=== PATIENT | male | born 1960 | race African-American/Black ===

== ENCOUNTER 2017-05-15 16:09 | Emergency (ER) | payer OTHER ==
[~2017-05-15] VITALS: Ht 177.8 cm; Wt 70.0 kg
[2017-05-15] MEDS ORDERED: MOTR200T44 PO (16:26)
[2017-05-15] MEDS ORDERED: HARV1TAB PO (16:26)
[2017-05-15] MEDS ORDERED: KETOROLAC 60 MG/2 ML VIAL (J1885) IM ONE (18:30)
--- NOTE | 2017-05-15 18:59 | REP ---
REASON: Pain. No trauma. PRIORS: None. AP pelvis shows moderate to severe bilateral asymmetric hip joint space narrowing with prominent femoral head cam deformities. There is mild acetabular subchondral sclerosis. There is no acute fracture. TWO VIEWS OF THE LEFT HIP: There is asymmetric hip joint space narrowing with acetabular subchondral sclerosis. There is a prominent superolateral femoral head cam deformity. There is no acute fracture or dislocation. IMPRESSION: Chronic changes as described above. Signed by Kojo Nolasco DO 05/15/2017 07:10 P
[2017-05-15] MEDS ORDERED: IBUP-1022 PO (19:13)
[2017-05-15] MEDS ORDERED: CYCL10TA PO (19:13)
[2017-05-15 19:58] VITALS: BP 138/82
== END 2017-05-15 20:02 | disposition home or self-care (01) ==
LOC: M ED 16:09
DX: M25.552 Pain in left hip (principal); I51.9 Heart disease, unspecified; I10 Essential (primary) hypertension; E78.5 Hyperlipidemia, unspecified; F17.200 Nicotine dependence, unspecified, uncomplicated; Z79.899 Other long term (current) drug therapy; Z88.0 Allergy status to penicillin
CPT/HCPCS: 73502; 96372; 99282; J1885; J3360